=== PATIENT | female | born 1940 | race Caucasian/White ===

== ENCOUNTER 2019-10-18 08:45 | Day surgery (SDC) | payer MEDICARE, OTHER ==
[~2019-10-18] VITALS: Ht 154.9 cm; Wt 65.8 kg
--- NOTE | ~2019-10-18 | OP ---
PATIENT NAME: ELIZA EWING MEDICAL RECORD: [id number] :39 [facility] DATE: SURGEON: AIDEN CUETO MD DATE OF OPERATION: 10/18/2019 REFERRING PHYSICIAN: Dr. Clark Barros. PREOPERATIVE DIAGNOSIS: End-stage renal disease and dependence on hemodialysis. POSTOPERATIVE DIAGNOSIS: End-stage renal disease and dependence on hemodialysis. OPERATION PERFORMED: Laparoscopic implantation of peritoneal dialysis catheter and creation of a left brachiobasilic Ce type AV fistula as the first of 2 planned operations to create a translocated basilic vein AV fistula. SURGEON: Aiden Cueto MD ANESTHESIA: General endotracheal per DRY TALC RACKER. PREOPERATIVE NOTE: Ms. Ewing is a 78-year-old white female with end-stage renal disease, who is presently on dialysis with a right internal jugular tunneled dialysis catheter. She needs long-term access and is to have both a peritoneal catheter implanted today and also a left arm AV fistula or AV graft constructed. The patient is 78 and I consider her borderline for AV fistula. She is known to have small veins on her initial venous mapping study and we will see what she has to work with. DESCRIPTION OF PROCEDURE: Under general endotracheal anesthesia in supine position, the patient was prepped and draped in sterile manner. A Flowers catheter was inserted. The abdomen was marked using a stencil and an adult size standard FlexNet classic dual cuff coil dialysis catheter and an incision made transversely lateral to and below the umbilicus on the left side. The anterior rectus sheath was exposed and a pursestring suture placed on the rectus muscle. They are infiltrated with 0.25% Marcaine with epinephrine. I then inserted a 5-mm XL Optiview port with a 5 mm 0-degree laparoscope in place through a small incision in the left upper quadrant and developed a pneumoperitoneum and then exchanged the telescope for a 30-degree 5-mm scope. The patient had no significant adhesions, no hernias. There was no omentum in the pelvis. I inserted an introducer sheath, cannula then through the anterior rectus sheath in the pursestring suture and then obliquely downward through the rectus muscle and preperitoneal space before entering the peritoneal cavity about midway between the umbilicus and the symphysis pubis close to the midline. I then inserted the dialysis catheter and buried the cuff and the rectus muscle and tied the pursestring suture. The catheter was then placed in a tunnel directed to a previously identified exit site in the left upper quadrant. The catheter was positioned and then attached to a transfer set and then 1 liter of saline was run rapidly into the abdomen, and of course, the insufflated carbon dioxide was allowed to escape. After which the IV bag was placed on the floor and the fluid allowed to siphon back into the bag and essentially all of the saline was recovered in that manner, which I think indicates other we can expect a satisfactory function from this catheter. The catheter was then heparin locked, clamped and capped and the wounds infiltrated with 0.25% Marcaine without epinephrine and the larger wound closed with interrupted inverted 3-0 Vicryl and then running intracuticular 4-0 Stratafix. The laparoscopic ports were removed OPERATIVE REPORT [id number] ELIZA EWING and those sites closed with simple interrupted inverted 3-0 Vicryl subcuticular sutures. The incisions were additionally closed and sealed with Dermabond glue and dressed with Maxorb Ag, Tegaderm, and Cavilon skin prep. The catheter exit site was dressed with a Biopatch and a 4 x 4 bordered gauze dressing. The patient was then completely reprepped and redraped. A [place] drain was used as a proximal venous tourniquet on the left arm and nitroglycerin paste was applied to the forearm and arm. I examined her with ultrasound and noted that the left basilic vein above the elbow was of satisfactory caliber and there was a median cubital vein draining to the basilic, which passed in close proximity to the brachial artery and although I had thought it most likely that I would be implanting a graft today, I decided to go ahead and try to construct a fistula in this 78-year-old lady. I made an incision exposing the median cubital vein and the brachial artery. The vein was the tributary of the basilic vein. It was dissected free of surrounding structures and distally ligated, transected and bevelled and flushed with heparinized saline and clamped. The artery was exposed and controlled with Silastic loops. It was occluded, opened, flushed proximally and distally with heparinized saline and an end-to-side, end of vein to side of artery anastomosis carried out with running 7-0 Prolene. When completed and the occluding loops and clamps were released tremendous flow immediately developed within the fistula with a very very strong palpable thrill. The wound was then irrigated and infiltrated with 0.25% Marcaine without epinephrine and closed with interrupted inverted 3-0 Vicryl and then running intracuticular 4-0 Stratafix and Dermabond glue. It was dressed with Maxorb Ag, Tegaderm, and Cavilon skin prep and the patient at that point was then awakened and extubated and taken to the recovery room. Blood loss during the operation was estimated perhaps 5 cc. None was replaced. Sponges, instruments, and needles were accounted for. No drain was used and no surgical specimen was submitted for histopathology. PLAN: The patient will go home today with a prescription for tramadol 50 mg she can take 1 or 2 p.o. q.4 hours p.r.n. pain. She will return to see me in my office on the . She is to keep all of her dressings dry and clean until she has that appointment to see me. She will need to have an appointment arranged in her dialysis unit in [place] for mid week next week, probably Monday or Monday to have the first dialysis catheter flush. TRANSINT:[id number] Voice Confirmation ID: [id number] DOCUMENT ID: [id number] cc: [facility] AIDEN CUETO MD CC: CLARK BARROS [id number] DICTATION DATE: 10/18/191812 SITE SUPERVISING TECHNICAL OPERATOR: 10/18/19 234 [facility] 10/18/19 [facility] [address] [place] [address]
[2019-10-18 09:13] LABS: HEMATOCRIT 35.3 % (36.0-48.0); HEMOGLOBIN 11.5 g/dL (12-16); LYMPHOCYTES 22.2 % (15-50); MCH 31.4 pg (26.0-34.0); MCHC 32.6 g/dL (31.0-37.0); MCV 96.4 fL (80.0-100.0); MEAN PLATELET VOLUME 10.5 fL (7.4-10.4); NEUTROPHILS 71.6 % (40-80); PLATELET COUNT 101 10x3/uL (130-400); RBC 3.66 10x6/uL (4.00-5.40); RDW 13.2 % (11.5-14.5); WBC 5.4 10x3/uL (4.8-10.8)
[2019-10-18 09:20] LABS: ANION GAP 11.5 mmol/L (8-16); CALCIUM 9.9 mg/dL (8.5-10.1); CARBON DIOXIDE 29.8 mmol/L (21.0-32.0); CREATININE - SERUM 4.1 mg/dL (0.6-1.3); POTASSIUM - SERUM 4.3 mmol/L (3.5-5.1)
[2019-10-18 09:51] LABS: INR 0.92 (0.85-1.17); PROTIME 12.4 SECONDS (11.6-15.0)
[2019-10-18] MEDS ORDERED: CORGARD40 MG PO (10:06)
[2019-10-18] MEDS ORDERED: VELTASSA8.4 GM PO (10:07)
[2019-10-18] MEDS ORDERED: NORVASC10 MG PO (10:08)
[2019-10-18] MEDS ORDERED: SODIUM BICARBO650 MG PO (10:08)
[2019-10-18] MEDS ORDERED: XANAX0.25 MG PO (10:09)
[2019-10-18 10:39] VITALS: Ht 154.9 cm; Wt 65.8 kg
[2019-10-18] MEDS ORDERED: ULTRAM50 MG PO (13:30)
--- NOTE | 2019-10-18 16:38 | NUR ---
1615 IV REMOVE AND INSTRUCTIONS GIVEN.
== END 2019-10-18 16:39 | disposition home or self-care (01) ==
LOC: D.OPS 08:45
PROVIDERS: Surgery; ATTEND Internal Medicine Nephrology
DX: N18.6 End stage renal disease (principal); Z99.2 Dependence on renal dialysis

== ENCOUNTER 2019-11-22 06:44 | Day surgery (SDC) | payer MEDICARE, OTHER ==
[~2019-11-22] VITALS: Ht 154.9 cm; Wt 66.2 kg
[~2019-11-22 06:44] MED LIST: CORGARD40 MG PO; NORVASC10 MG PO; SODIUM BICARBO650 MG PO; ULTRAM50 MG PO; VELTASSA8.4 GM PO; XANAX0.25 MG PO
[2019-11-22 07:12] LABS: BASOPHILS 0.2 % (0-2); EOSINOPHILS 4.1 % (0-7); HEMATOCRIT 37.4 % (36.0-48.0); HEMOGLOBIN 11.9 g/dL (12-16); IMMATURE GRANULOCYTES 0.4 % (0-5); LYMPHOCYTES 20.7 % (15-50); MCH 31.5 pg (26.0-34.0); MCHC 31.8 g/dL (31.0-37.0); MCV 98.9 fL (80.0-100.0); MONOCYTES 9.3 % (2-11); NEUTROPHILS 65.3 % (40-80); PLATELET COUNT 114 10x3/uL (130-400); RBC 3.78 10x6/uL (4.00-5.40); RDW 13.4 % (11.5-14.5); WBC 5.2 10x3/uL (4.8-10.8)
[2019-11-22 07:19] LABS: ANION GAP 10.8 mmol/L (8-16); CALCIUM 9.6 mg/dL (8.5-10.1); CARBON DIOXIDE 28.7 mmol/L (21.0-32.0); CREATININE - SERUM 3.4 mg/dL (0.6-1.3); INR 1.02 (0.85-1.17); POTASSIUM - SERUM 4.5 mmol/L (3.5-5.1); PROTIME 13.4 SECONDS (11.6-15.0)
[2019-11-22] MEDS ORDERED: PAXIL20 MG PO (08:08)
[2019-11-22] MEDS ORDERED: MELATONIN5 MG (08:09)
[2019-11-22 08:29] VITALS: Ht 154.9 cm; Wt 66.2 kg
[2019-11-22] MEDS ORDERED: ULTRAM50 MG PO (10:48)
--- NOTE | 2019-11-22 16:21 | NUR ---
1310 PT C/O OF STINGING SENSATION IN LEFT ARM AND ASKING FOR A PAIN MEDICATION PRIOR TO GOING HOME. PT STATES THE DISCOMFORT IS A 4 OUT OF 10. 1400 PT STATES HER ARM FEELS BETTER AFTER TAKING ULTRAM. PAIN LEVEL (STINGING) IS DECREASING. IV DC'D. CATHETER TIP INTACT. NO BLEEDING AT SITE. BANDAID APPLIED.
--- NOTE | 2019-11-22 16:24 | NUR ---
1409 PT IS READY FOR DISCHARGE. DISCHARGE INSTRUCTIONS WERE GIVEN EARLIER. BOTH PT AND HER DAUGHTER VOICE UNDERSTANDING OF INSTRUCTIONS.
--- NOTE | 2019-11-24 13:53 | OP ---
PATIENT NAME: ELIZA VILLARREAL MEDICAL RECORD: [id number] :39 [facility] DATE: SURGEON: AIDEN CUETO MD DATE OF OPERATION: 11/22/2019 REFERRING PHYSICIAN: Dr. Clark Barros. PREOPERATIVE DIAGNOSES: End-stage renal disease and dependence on renal dialysis and other mechanical complication of surgically created AV fistula on the left arm and the patient's decision to stop peritoneal dialysis and have her peritoneal catheter removed and continue with just hemodialysis. POSTOPERATIVE DIAGNOSIS: End-stage renal disease and dependence on renal dialysis and other mechanical complication of surgically created AV fistula on the left arm and the patient's decision to stop peritoneal dialysis and have her peritoneal catheter removed and continue with just hemodialysis. OPERATION PERFORMED: Planned return to the operating room during global period for open revision without thrombectomy of left arm AV fistula and also for removal of peritoneal dialysis catheter. SURGEON: Aiden Cueto MD ANESTHESIA: Regional nerve block plus general with LMA per UNIT LEADER. PREOPERATIVE NOTE: This 79-year-old white female patient is about a month, status postop creation of a Ce type left brachial artery to basilic vein AV fistula. That fistula has remained patent and has begun to mature and the vein dilate and the vein is now about a centimeter in diameter and is ready to be translocated into immediately subcutaneous position. The patient is brought to the operating room today as planned originally for that procedure. Also, however, and not planned previously is that the patient does not want to continue peritoneal dialysis and wants the peritoneal catheter removed. That will be done as well. DESCRIPTION OF PROCEDURE: Under anesthesia in supine position, the patient was prepped and draped in sterile manner. I examined her left upper arm with ultrasound and mapped out the course of the basilic vein and then made an incision from axilla to antecubital space and mobilized the vein from axilla to the arterial anastomosis. Hemostasis was obtained with electrocautery and 3-0 Vicryl ties and Hemoclips. Cutaneous sensory nerves were spared as much as possible, though I did not divide the vein. The vein was treated with topical papaverine and the wound irrigated with Ancef and gentamicin solution and the deeper fascia and the subcutaneous tissues were approximated beneath the basilic vein and the skin was then closed over it with few interrupted inverted subcuticular 3-0 Vicryl sutures and then a running 4-0 Stratafix. The incision was sealed with glue and dressed with Maxorb Ag, Tegaderm, and Cavilon skin prep. The patient's abdomen had been prepped and draped initially. It was then exposed and an oblique incision about an inch in length was made directly over the palpable subcutaneous cuff. The catheter and cuff was exposed and the cuff free from the surrounding tissues and the catheter clamped and divided. The external portion was discarded. I then reopened the transverse left paramedian incision and exposed the catheter and entered, to my surprise about 10 cc volume OPERATIVE REPORT [id number] CHERELLEELIZA ALLISON seroma or collection of clear fluid possibly dialysate surrounding the site where the catheter perforated into the rectus muscle. I incised the anterior rectus sheath enough to mobilize the cuff and delivered from the rectus sheath and then delivered the entire coiled portion of the catheter intact. The catheter was discarded. It was not cultured or sent for any type of documentation and pathology. The patient's wounds were irrigated with Ancef/gentamicin solution and infiltrated with 0.25% Marcaine without epinephrine. Wound closure was performed with interrupted inverted 3-0 Vicryl and running intracuticular 4-0 Stratafix and Dermabond glue. The wounds were dressed with Maxorb Ag, Tegaderm, and Cavilon skin prep. She was awakened and in stable condition with a functioning fistula, taken to the recovery room. PLAN: The patient will be allowed to go home today with a prescription for tramadol 50 mg 1 p.o. q.4 hours p.r.n. pain, #20 and an appointment to return to see me in my office next week. She is also given my cell number in case she should need to reach me after hours or over this weekend. She is to continue her same medications, diet, activities as tolerated and her routine dialysis schedule. TRANSINT:[id number] Voice Confirmation ID: [id number] DOCUMENT ID: [id number] cc: [facility] AIDEN CUETO MD at 1353 CC: CLARK BARROS [id number] DICTATION DATE: 11/22/19 1104 DESIGN AND SALES CONSULTANT: 11/22/191900 [facility] 11/22/19 [facility] [address] [place] [address]
== END 2019-11-22 14:09 | disposition home or self-care (01) ==
LOC: D.OPS 06:44
PROVIDERS: ATTEND Surgery
DX: N18.6 End stage renal disease (principal); Z99.2 Dependence on renal dialysis; D64.9 Anemia, unspecified

== ENCOUNTER 2020-07-10 06:05 | Day surgery (SDC) | payer MEDICARE, OTHER ==
[~2020-07-10] VITALS: Ht 162.6 cm; Wt 68.5 kg
[~2020-07-10 06:05] MED LIST changes: +MELATONIN5 MG; +PAXIL20 MG PO
[2020-07-10 06:41] LABS: BASOPHILS 0.7 % (0-2); EOSINOPHILS 1.4 % (0-7); HEMATOCRIT 36.7 % (36.0-48.0); HEMOGLOBIN 12.1 g/dL (12-16); LYMPHOCYTES 18.4 % (15-50); MCH 32.7 pg (26.0-34.0); MCHC 33.1 g/dL (31.0-37.0); MCV 98.8 fL (80.0-100.0); MEAN PLATELET VOLUME 9.6 fL (7.4-10.4); MONOCYTES 7.6 % (2-11); NEUTROPHILS 71.9 % (40-80); PLATELET COUNT 132 10x3/uL (130-400); RBC 3.71 10x6/uL (4.00-5.40); RDW 14.3 % (11.5-14.5); WBC 6.8 10x3/uL (4.8-10.8)
[2020-07-10 06:54] LABS: ANION GAP 13.1 mmol/L (8-16); CALCIUM 9.2 mg/dL (8.5-10.1); CARBON DIOXIDE 26.6 mmol/L (21.0-32.0); CREATININE - SERUM 3.3 mg/dL (0.6-1.3); POTASSIUM - SERUM 4.7 mmol/L (3.5-5.1)
[2020-07-10 07:40] LABS: APTT 24.8 SECONDS (22.8-39.4); INR 1.12 (0.85-1.17); PROTIME 13.4 SECONDS (11.6-15.0)
[2020-07-10 08:19] VITALS: Ht 162.6 cm; Wt 68.5 kg
--- NOTE | 2020-07-10 13:36 | NUR ---
1100 IV REMOVED AND PRESSURE HELD, INSTRUCTIONS GIVEN. PALP THRILL TO LEFT ARM. DR CUETO HERE TO TALK WITH PT AND FAMILY. INSTRUCTIONS GIVEN
--- NOTE | 2020-07-14 08:33 | OP ---
PATIENT NAME: ELIZA EWING MEDICAL RECORD: [id number] :39 LOCATION:[facility] ADMISSION DATE: SURGEON: AIDEN CUETO MD DATE OF OPERATION: 07/10/2020 REFERRED BY: Dr. Barros and Dr. Gan. PREOPERATIVE DIAGNOSIS: Pain from arteriovenous fistula, left arm due to underlying Ethilon suture on the undersurface of the skin. POSTOPERATIVE DIAGNOSIS: Pain from arteriovenous fistula, left arm due to underlying Ethilon suture on the undersurface of the skin. OPERATION PERFORMED: Revision of AV fistula, left arm. SURGEON: Aiden Cueto MD ANESTHESIA: Local MAC. PREOPERATIVE NOTE: Ms. Ewing is an 79-year-old white female patient with end-stage renal disease, on chronic hemodialysis. She is dialyzing with a left brachial to translocated basilic vein AV fistula, which was recently banded due to steal symptoms. Her access flow was only about 1000 prior to that and palpably is considerably less now, but she is dialyzing without difficulties and says that her symptoms were completely relieved by the recent surgery. Unfortunately, one of the Ethilon sutures used for the Barrientos banding procedure has eroded to a level immediately underneath the overlying skin incision where it is causing her considerable pain and discomfort. That suture is to be trimmed back or removed today and I have chosen to do it in the operating room rather than in a less intense environment due to the potential for hemorrhage and possibly even the necessity for more extensive revision of the fistula with implantation of an AV graft. DESCRIPTION OF PROCEDURE: Under sedation and monitoring, local anesthetic 1% lidocaine with epinephrine was infiltrated into the skin and subcutaneous tissues overlying the anastomosis. The incision was placed and the wound deepened until I exposed the offending Ethilon suture, which I carefully debrided back to the knot. Unfortunately, at this point, the suture was completely loosened and I removed it with gentle traction. I had hoped to be able to preserve it and preserve its banding effect, but this was not possible. Following that, the pressure and pulsatility in the fistula was palpably increased though there is still a significant gradient between the proximal and distal portions as there are other sutures in place still. The wound was irrigated with saline and closed with interrupted inverted 3-0 Vicryl and running intracuticular Monocryl and Dermabond glue. It was dressed with Maxorb AG, Tegaderm, and Cavilon skin prep. The patient was taken to the recovery room and was doing well with good thrill and bruit over her fistula and she did not have any complaints of hand pain during a period of observation after surgery. Sponges, instruments and needles were accounted for. No drain was used and no surgical specimen submitted. The patient will be discharged today and return to see me in my office next OPERATIVE REPORT [id number] CHERELLEELIAZ ALLISONJane pablo. We will need to pay particular attention and watch for recurrence of steal symptoms and I will ask her dialysis unit to check her postop access flow measurement before she returns to see me and I need to know what her access flow measurements have been since the banding procedure, which I have not been informed. TRANSINT:[id number] Voice Confirmation ID: [id number] DOCUMENT ID: [id number] AIDEN CUETO MD at 0833 CC: OLI GAN and COLT BARROS MD [id number] DICTATION DATE: 07/13/20 1109 [place] HAND: 07/13/[address] [facility] 07/10/20 [id number] [place] [address]
== END 2020-07-10 11:30 | disposition home or self-care (01) ==
LOC: D.OPS 06:05
PROVIDERS: Surgery; ATTEND Internal Medicine Nephrology
DX: N18.6 End stage renal disease (principal); Z99.2 Dependence on renal dialysis; T82.898A Other specified complication of vascular prosthetic devices, implants and grafts, initial encounter; I10 Essential (primary) hypertension; E07.9 Disorder of thyroid, unspecified